=== PATIENT | female | born 1970 | race Caucasian/White ===

== ENCOUNTER 2021-08-29 07:44 | Outpatient (CLI) | payer BC | END 2021-08-29 07:45 | disposition home or self-care (01) | LOC: CSHMAMMO 07:44 | PROVIDERS: ATTEND Family Medicine | DX: Z12.31 Encounter for screening mammogram for malignant neoplasm of breast (principal) | CPT/HCPCS: 77063; 77067 ==

== ENCOUNTER 2022-09-19 14:25 | Outpatient (CLI) | payer BC | END 2022-09-19 14:26 | disposition home or self-care (01) | LOC: CSHMAMMO 14:25 | PROVIDERS: ATTEND Family Medicine | DX: Z12.31 Encounter for screening mammogram for malignant neoplasm of breast (principal) | CPT/HCPCS: 77063; 77067 ==

== ENCOUNTER 2024-06-30 09:44 | Outpatient (CLI) | payer BC | END 2024-06-30 09:45 | disposition home or self-care (01) | LOC: CSHMAMMO 09:44 | PROVIDERS: ATTEND Physician Assistant | DX: Z12.31 Encounter for screening mammogram for malignant neoplasm of breast (principal) | CPT/HCPCS: 77063; 77067 ==